=== PATIENT | male | born 1965 ===

== ENCOUNTER 2018-08-30 10:23 | Day surgery (SDC) | payer OTHER ==
[2018-08-30] VITALS (10 sets, daily range): BP systolic 120–130; BP diastolic 79–86
[~2018-08-30] VITALS: Ht 180.3 cm; Wt 99.8 kg
--- NOTE | 2018-08-30 07:01 | Pre-Procedure Note/Attestation ---
Pre-Procedure Note/Attestation Complete Prior to Procedure Planned Procedure: right Procedure Narrative: rt knee scope, medial meniscectomy and chondroplasty Indications for Procedure Pre-Operative Diagnosis: rt knee medial meniscus tear Attestation I attest that I discussed the nature of the procedure; its benefits; risks and complications; and alternatives (and the risks and benefits of such alternatives ), prior to the procedure, with the patient (or the patient's legal sales support representative). I attest that, if there was a reasonable possibility of needing a blood transfusion, the patient (or the patient's legal sales support representative) was given the [facility] standardized written summary, pursuant to the [employer] Miguel Melly Blood Safety Act ([place] Health and Safety Code # 1645, as amended). I attest that I re-evaluated the patient just prior to the surgery and that there has been no change in the patient's H&P, except as documented below: none Jeyson Mosley MD Aug 30, 2018 07:01
[~2018-08-30 10:23] MED LIST: ceFAZolin 1gm IVPB IVPB ONE; celeBREX 200mg Cap **SURGERY PATIENTS ONLY ORAL ONE; oxyCONTIN 20mg tab ORAL ONE
[2018-08-30] MEDS ORDERED: PROPRANOLOL HCL60 MG ORAL (11:10)
[2018-08-30] MEDS ORDERED: ALFUZOSIN HCL10 MG PO (11:10)
[2018-08-30] MEDS ORDERED: OMEPRAZOLE20 M2 ORAL (11:10)
[2018-08-30] MEDS ORDERED: LIPITOR10 MG ORAL (11:10)
[2018-08-30] MEDS ORDERED: VENLAFAXINE H37.5 MG ORAL (11:10)
[2018-08-30] MEDS ORDERED: TRAZODONE HCL150 MG ORAL (11:10)
[2018-08-30] MEDS ORDERED: oxyCONTIN 20mg tab ORAL ONE (11:21)
[2018-08-30] MEDS ORDERED: celeBREX 200mg Cap **SURGERY PATIENTS ONLY ORAL ONE (11:21)
[2018-08-30] MEDS ORDERED: Midazolam 2mg/2ml Inj ONE (11:42)
[2018-08-30] MEDS ORDERED: fentaNYL 100 mcg/2 mL IV ONE (11:42)
[2018-08-30] MEDS ORDERED: Lidocaine 1% MPF 10mg/ml 5ml ONE (11:44)
[2018-08-30] MEDS ORDERED: Propofol 200mg/20ml IV ONE (11:44)
[2018-08-30] MEDS ORDERED: Ketorolac 30mg Inj ONE (11:44)
[2018-08-30] MEDS ORDERED: LR 1000ml ONE (13:00)
[2018-08-30] MEDS ORDERED: NS Irrig 4000ml IRRIG ONE (13:16)
[2018-08-30] MEDS ORDERED: Ropivacaine 5mg/ml Vial 30ml INJ ONE (13:18)
[2018-08-30] MEDS ORDERED: LR 1000ml 1,000 ML IVLG SCH (13:52)
--- NOTE | 2018-08-30 13:52 | Anethesia Preoperative Eval ---
Anesthesia Pre-op PMH/ROS General Date of Evaluation: Aug 30, 2018 Time of Evaluation: 13:10 Anesthesiologist: Renita ASA Score: ASA 2 Mallampati Score Class I : Soft palate, uvula, fauces, pillars visible Class II: Soft palate, uvula, fauces visible Class III: Soft palate, base of uvula visible Class IV: Only hard plate visible Mallampati Classification: Class II Surgeon: Dimitri Diagnosis: R knee pain Surgical Procedure: R knee scope Anesthesia History: none Family History: no anesthesia problems Allergies: Coded Allergies: CYCLOBENZAPRINE (Verified Allergy, Severe, Rash, 08/30/18) Medications: see eMAR Patient NPO?: Yes Past Medical History Cardiovascular: Reports: HTN; Denies: CAD, VT, valve dz, arrhythmia, other Pulmonary: Denies: asthma, COPD, MODESTA, other Gastrointestinal/Genitourinary: Reports: GERD; Denies: CRI, ESRD, other Neurologic/Psychiatric: Reports: depression/anxiety, other - chronic pain; Denies: dementia, CVA, TIA Endocrine: Denies: DM, hypothyroidism, steroids, other HEENT: Denies: cataract (L), cataract (R), glaucoma, HYDABURG (L), HYDABURG (R), other Hematology/Immune: Denies: anemia, DVT, bleeding disorder, other Musculoskeletal/Integumentary: Denies: OA, RA, DJD, DDD, edema, other Other: other - overweright PMH Narrative: as above PSxH Narrative: Hernia repairs Anesthesia Pre-op Phys. Exam Physician Exam Last Vital Signs Date Time Temp Pulse Resp B/P (MAP) Pulse Ox O2 Delivery O2 Flow Rate FiO2 08/30/18 11:14 Room Air 08/30/18 11:05 97.4 79 18 130/86 98 Constitutional: NAD Neurologic: CN 2-12 intact Cardiovascular: RRR, no M/R/G Respiratory: CTA Gastrointestinal: S/NT/ND Airway Exam Mallampati Score: Class II MO: full Neck: flexible ROM: full Teeth: intact Dentures: no upper, no lower Anesthesia Pre-op A/P Labs see chart Studies Pre-op Studies: EKG - NSR Risk Assessment & Plan Assessment: ASA 2 Plan: GA with LMA Status Change Before Surgery: No Pre-Antibiotics Drug: Ancerf 2gr. Given Within 1 Hr of Incision: Yes Time Given: 13:51 Rogers Maravilla MD Aug 30, 2018 13:52
[2018-08-30] MEDS ORDERED: DiphenhydrAMINE 50mg/ml Inj IVP PRN (14:00)
[2018-08-30] MEDS ORDERED: D5 1/2NS 1,000 ML IV SCH (14:00)
[2018-08-30] MEDS ORDERED: Ketorolac 30mg Inj IV PRN (14:00)
[2018-08-30] MEDS ORDERED: HYDROmorphone 1mg/ml Carpuject SUBQ PRN (14:00)
[2018-08-30] MEDS ORDERED: Tylenol #3 tab (300mg/30mg) ORAL PRN (14:00)
[2018-08-30] MEDS ORDERED: HYDROcodone/Acetamin 5/325 tab ORAL PRN (14:00)
[2018-08-30] MEDS ORDERED: Hydromorphone 0.5mg/0.5ml inj IVP PRN (14:00)
[2018-08-30] MEDS ORDERED: Meperidine 50mg/ml Inj(FOR RIGORS ONLY) IV PRN ×2 (14:00)
--- NOTE | 2018-08-30 14:17 | Brief Operative Note ---
Immediate Post Operative Note Operative Note Chief Complaint: rt knee pain Pre-op Diagnosis: rt knee medial meniscus tear Procedure: rt knee scope, medial meniscectomy and chondroplasty Post-op Diagnosis: same as pre-op Findings: consistent w/pre-op dx studies Surgeon: md analisa Raw Stock Dyeing Machine Tender: analilia muñiz Anesthesiologist: md susan Anesthesia: general Specimen: none Complications: none Condition: stable Fluids: ns Estimated Blood Loss: minimal Drains: none Implant(s) used?: No Judy Muñiz Aug 30, 2018 14:17
--- NOTE | 2018-08-30 14:31 | Immediate Post-Op Evaluation ---
Immediate Post-Op Evalulation Immediate Post-Op Evalulation Procedure: R knee arthroscopy, meniscectomy Date of Evaluation: Aug 30, 2018 Time of Evaluation: 14:30 IV Fluids: 800 Blood Products: NONE Estimated Blood Loss: MIN Urinary Output: none Blood Pressure Systolic: 128 Blood Pressure Diastolic: 74 Pulse Rate: 76 Respiratory Rate: 20 O2 Sat by Pulse Oximetry: 98 Temperature (Fahrenheit): 97.6 Pain Score (1-10): 1 Nausea: No Vomiting: No Complications none Patient Status: reacts, patent, none Hydration Status: adequate Rogers Maravilla MD Aug 30, 2018 14:31
--- NOTE | 2018-08-30 23:45 | Operative Note - Dictated ---
DATE OF OPERATION: 08/30/2018 PREOPERATIVE DIAGNOSIS: Right knee posterior horn of medial meniscus tearing. POSTOPERATIVE DIAGNOSES: 1. 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 2. Right knee undersurface tear of the posterior horn of the medial meniscus, less than 1 cm. PROCEDURE: 1. Right knee arthroscopy and extensive intra-articular shaving. 2. Right knee patellofemoral chondroplasty with debridement of this unstable chondral flap to a stable zone. 3. Right knee undersurface tear of the posterior horn of medial meniscus repair with a trephination technique. SURGEON: Jeyson Mosley M.D. TELEVISION PRODUCTION ASSISTANT: Judy Martinez PA-C. Property Field Inspector was present during the actual operative portion of the case and was important and essential part of the operation. During the operation, the creative assistant held and operated the arthroscopic camera for visualization, assisted by manipulating the leg to help with visualization, and helped with essential parts of the repair process as necessary such as operating surgical instruments under surgeon supervision, suture management, and wound closures. ANESTHESIOLOGIST: Rogers Maravilla M.D. ANESTHESIA: LMA anesthesia. TOURNIQUET TIME: 30 minutes. ESTIMATED BLOOD LOSS: Less than 20 mL. COMPLICATIONS: None. SURGICAL INDICATION: The patient is a 52-year-old male who sustained the above injury to his knee. The patient was treated non-operative initially, but this did not alleviate the patients symptoms. Therefore, after discussing all non-surgical and surgical options, and discussing all foreseeable risk and benefits of surgery, the patient opted for surgical treatment as described above. PATIENT POSITIONING: The patient was brought to the operating room table and placed supine. All pressure points were well-padded. General anesthesia was induced and a well-padded tourniquet was placed on the thigh. The lateral post was placed and positioned to allow for opening of the medial compartment of the knee without placing pressure over the fibular head. The patients entire leg was prepped and draped in the usual sterile fashion. Time-out was performed and preop antibiotic was given and after exsanguinating the lower extremity, the tourniquet was inflated to 275 mmHg. EXAMINATION OF THE KNEE UNDER ANESTHESIA: Before prepping and draping the knee and while the patient was relaxed under general anesthesia, the knee was examined for ROM, and anterior and posterior, medial and lateral, posterolateral, and posteromedial instability. Pivot-shift testing was performed. There was no evidence of loss of motion or instability and the pivot-shift testing was negative. PORTAL PLACEMENT: The lateral portal was placed with the knee flexed to 90 degrees at the level of inferior border of the patella in line with the lateral border of the patella. A 0.5-cm skin incision was made with an 11 blade, and using a blunt obturator, the capsule was gently penetrated. Sterile saline solution was then infused inside the knee with the aid of a pump set at 35 mmHg pressure. Under direct visualization, placement of the medial portal was preliminarily judged using a spinal needle, and it was subsequently established using the same technique as the lateral portal. Care was given not to injure the cutaneous branches of the medial saphenous nerve or the subcutaneous veins. DIAGNOSTIC ARTHROSCOPY: The suprapatellar patellar pouch was visualized. There was no evidence of scar tissue or loose fragments. The medial and lateral patellar facets and trochlear groove articular cartilage was visualized. There was an unstable chondral flap over the medial patellar facet measuring 1 x 1 cm. This was consistent with grade 3 chondromalacia. This was catching on the trochlea. The medial plica shelf and the corresponding medial femoral condyle articular cartilage were visualized. There was no significantly thickening of the medial plica shelf and there were no kissing? lesion over the medial femoral condyle. The lateral gutter and the posterolateral corner of the knee were visualized. There were no loose bodies, and the popliteus tendon and other structures of the posterolateral corner of the knee were intact intra-articularly. At this point, the knee was placed in the [id number] position and the lateral compartment was entered. The lateral femoral condyle, lateral tibial plateau, and the anterior, body, and the posterior horn of the lateral meniscus were visualized and probed. The articular surfaces were intact and devoid of articular cartilage damage. The lateral meniscus was completely intact both on its undersurface and on the top. The knee was then placed at 90 degrees and the ACL and PCL were visualized and probed. The ACL was completely intact on visualization and probing, and it had excellent tension. The PCL was completely intact on visualization and probing and it had excellent tension. The medial compartment was then entered and the medial femoral condyle, medial tibial plateau, and the anterior, body, and the posterior horn of the medial meniscus were visualized and probed. The articular surfaces were intact and devoid of articular cartilage damage. The majority of the medial meniscus was intact; however, posteriorly, the undersurface of the meniscus at the meniscocapsular junction had a tear which could be probed. This was a partial undersurface meniscus tear at the meniscocapsular junction. Considering the fact that this was such a deep tear and in red-red zone of the meniscus, a decision was made to repair it using trephination technique. It should be noted that suture fixation was not used due to the fact that this was a relatively stable tear (less than 1 cm and was not displaced into the notch). The medial gutter was visualized. There was no evidence of defect or loose fragments. The scope was then brought back to the patellofemoral compartment. The frayed articular cartilage of the undersurface of the patella and the trochlear groove were debrided using a motorized shaver. Suction was used to pull in the loose fragments and flaps of the cartilage and to minimize damage to the intact and well-attached portion of the cartilage. This allowed for a smooth surface for the articular cartilage gliding. The inflow was turned on again, the knee joint was irrigated, and debris was removed. At this point, care was given to the medial meniscus. Again, this was probed from undersurface of the meniscus. The medial meniscus had a tear on the undersurface which would not be displaced into the notch. This was less than 1 cm. Therefore, using a spinal needle, multiple poke holes were made in the posterior capsule right at the level of the tear to allow for the healing. It was felt that since this was only undersurface tear and the tear did not come to the dorsal side of the meniscus, this trephination technique was the best technique to allow healing. CONDITION AT DISCHARGE FROM OPERATING ROOM: The knee was irrigated with copious amount of normal saline at the end of the procedure. The scope was removed and the water was drained. The skin edges were reapproximated and sterile dressing was applied. All lap count and instrument counts were correct. The patient tolerated the procedure well without complications and was taken to the recovery room in stable conditions. Jeyson Allen Mosley DR: Mercedes JOB#: [id number] CC:
== END 2018-08-30 15:35 | disposition home or self-care (01) ==
LOC: SUR 10:23
DX: S83.241A Other tear of medial meniscus, current injury, right knee, initial encounter (principal); M24.10 Other articular cartilage disorders, unspecified site; K21.9 Gastro-esophageal reflux disease without esophagitis; F32.9 Major depressive disorder, single episode, unspecified; F41.9 Anxiety disorder, unspecified; E66.3 Overweight; Z68.30 Body mass index [BMI] 30.0-30.9, adult
CPT/HCPCS: 29881; J0690; J1885; J2250; J2704; J2795; J3010; 94003; 94150